=== PATIENT | male | born 1995 | race Caucasian/White ===

== ENCOUNTER 2018-12-24 00:17 | Emergency (ER) | payer OTHER ==
[~2018-12-24] VITALS: Ht 182.9 cm; Wt 68.0 kg
[2018-12-24] MEDS ORDERED: NORCO 5-325 TA1 EACH PO (01:23)
[2018-12-24 01:51] VITALS: BP 123/82
== END 2018-12-24 01:52 | disposition home or self-care (01) ==
LOC: M.ERS 00:17
DX: S62.396A Other fracture of fifth metacarpal bone, right hand, initial encounter for closed fracture (principal); F17.210 Nicotine dependence, cigarettes, uncomplicated; Z88.0 Allergy status to penicillin; Z88.6 Allergy status to analgesic agent; W22.8XXA Striking against or struck by other objects, initial encounter; Y93.89 Activity, other specified; Y92.89 Other specified places as the place of occurrence of the external cause; Y99.8 Other external cause status

== ENCOUNTER 2020-03-04 18:54 | Emergency (ER) | payer OTHER ==
[~2020-03-04] VITALS: Ht 182.9 cm; Wt 85.7 kg
[~2020-03-04 18:54] MED LIST: NORCO 5-325 TA1 EACH PO
[2020-03-04 19:07] VITALS: BP 130/57
[2020-03-04] MEDS ORDERED: BUSPIRONE HCL10 MG PO (19:10)
[2020-03-04] MEDS ORDERED: LEXAPRO20 MG PO ×2 (19:10)
[2020-03-04] MEDS ORDERED: LIDOCAINE VISC100 ML SWISH&SPIT (19:24)
[2020-03-04] MEDS ORDERED: CLEOCIN HCL150 MG PO (19:24)
[2020-03-04] MEDS ORDERED: TYLENOL WITH CO1 TA1 PO (19:24)
== END 2020-03-04 19:37 | disposition home or self-care (01) ==
LOC: M.ERS 18:54
DX: S02.5XXA Fracture of tooth (traumatic), initial encounter for closed fracture (principal); Z88.0 Allergy status to penicillin; Z88.6 Allergy status to analgesic agent; Z88.5 Allergy status to narcotic agent; X58.XXXA Exposure to other specified factors, initial encounter; Y93.9 Activity, unspecified; Y92.89 Other specified places as the place of occurrence of the external cause; Y99.8 Other external cause status

== ENCOUNTER 2021-02-19 15:47 | Emergency (ER) | payer OTHER ==
[~2021-02-19] VITALS: Ht 182.9 cm; Wt 94.3 kg
[~2021-02-19 15:47] MED LIST changes: +BUSPIRONE HCL10 MG PO; +CLEOCIN HCL150 MG PO; +LEXAPRO20 MG PO; +LIDOCAINE VISC100 ML SWISH&SPIT; +TYLENOL WITH CO1 TA1 PO
[2021-02-19] MEDS ORDERED: ALPRAZOLAM 0.50.5 MG PO (16:03)
[2021-02-19] MEDS ORDERED: MUSCLE RELAXER (16:04)
[2021-02-19] MEDS ORDERED: BACTRIM DS TAB1 EACH PO (17:13)
[2021-02-19] MEDS ORDERED: HYDROCODON-ACE1 EAC7 PO (17:13)
[2021-02-19] MEDS ORDERED: CEPHALEXIN500 MG PO (17:13)
[2021-02-19 17:32] VITALS: BP 138/75
== END 2021-02-19 17:34 | disposition home or self-care (01) ==
LOC: M.ERS 15:47
DX: S90.31XA Contusion of right foot, initial encounter (principal); L03.115 Cellulitis of right lower limb; Z88.6 Allergy status to analgesic agent; Z88.5 Allergy status to narcotic agent; Z88.0 Allergy status to penicillin; Z79.899 Other long term (current) drug therapy; W20.8XXA Other cause of strike by thrown, projected or falling object, initial encounter; Y93.89 Activity, other specified; Y92.89 Other specified places as the place of occurrence of the external cause; Y99.8 Other external cause status

== ENCOUNTER 2021-03-17 14:56 | Emergency (ER) | payer OTHER ==
[~2021-03-17] VITALS: Ht 182.9 cm; Wt 95.3 kg
[~2021-03-17 14:56] MED LIST changes: +ALPRAZOLAM 0.50.5 MG PO; +BACTRIM DS TAB1 EACH PO; +CEPHALEXIN500 MG PO; +HYDROCODON-ACE1 EAC7 PO; +MUSCLE RELAXER
[2021-03-17] MEDS ORDERED: FLEXERIL PO (15:09)
[2021-03-17] MEDS ORDERED: CEPHALEXIN500 MG PO (15:19)
[2021-03-17] MEDS ORDERED: BACTRIM DS TAB1 EACH PO (15:19)
[2021-03-17] MEDS ORDERED: MUPIROCIN15 GM TOP (15:26)
[2021-03-17 15:47] VITALS: BP 134/72
== END 2021-03-17 15:48 | disposition home or self-care (01) ==
LOC: M.ERS 14:56
DX: L03.115 Cellulitis of right lower limb (principal); Z88.0 Allergy status to penicillin; Z88.1 Allergy status to other antibiotic agents; Z88.5 Allergy status to narcotic agent